=== PATIENT | female | born 1950 | race Caucasian/White ===

== ENCOUNTER 2017-03-18 07:33 | Outpatient (CLI) | payer MEDICARE, OTHER ==
--- NOTE | 2017-03-18 11:21 | CT ---
CT OF ABDOMEN AND PELVIS PERFORMED WITH CONTRAST ENHANCEMENT: HISTORY: Endometrial cancer restaging. COMPARISON: 11/30/16 study. FINDINGS: The lung bases are clear. The liver shows a suggestion of fatty change. It measures 18.7 cm in length. The spleen is 10.5 cm. Pancreas shows no mass or ductal dilatation. The gallbladder region is unremarkable. Right and left adrenal glands and right and left kidneys are normal in size. A small dystrophic calc ification along the posterior aspect of the right lobe of the liver is unchanged. There is no significant periaortic or mesenteric adenopathy. There is some very mild diverticulosis of the descending and sigmoid colon. A tiny fat-containing paraumbilical hernia is seen. CT OF PELVIS PERFORMED WITH CONTRAST ENHANCEMENT: Postop hysterectomy changes are noted. There is no significant pelvic lymphadenopathy. IMPRESSION: 1. Fatty change of the liver which is borderline in size. 2. Postop hysterectomy change. 3. Minimal colonic diverticulosis. POS: [facility]
== END 2017-03-18 07:34 | disposition home or self-care (01) ==
LOC: SCSCT 07:33
PROVIDERS: ATTEND Internal Medicine Hematology & Oncology
DX: C54.1 Malignant neoplasm of endometrium (principal); K76.0 Fatty (change of) liver, not elsewhere classified; Z90.710 Acquired absence of both cervix and uterus
CPT/HCPCS: 74177

== ENCOUNTER 2017-08-05 07:52 | Outpatient (CLI) | payer MEDICARE, OTHER ==
[2017-08-05] MEDS ORDERED: Iopamidol 370 76% 100 ML VIAL ONE (09:00)
--- NOTE | 2017-08-05 12:26 | CT ---
CT OF THE CHEST AND ABDOMEN AND PELVIS WITH IV CONTRAST: Date: 08/05/17 INDICATION: History of endometrial malignancy. Status post hysterectomy. COMPARISON: Prior CT of the chest, abdomen, and pelvis dated 08/16/16. FINDINGS: No suspicious pulmonary nodule is demonstrated. There are some areas of subsegmental volume loss with in the lower lobes and lingula. There is a left chest wall port projecting into the SVC. No pathologically enlarged mediastinal, hilar, or axillary lymphadenopathy is evident. There is fatty infiltration of the liver with areas of focal fatty sparing near the falciform ligamen t. The adrenal glands, pancreas, spleen, and kidneys appear within normal limits. There are mild vascular calcifications involving the abdominal aorta. There is stable postsurgical change of a hysterectomy and bilateral oophorectomy. No pathologically e nlarged lymph nodes are evident. The bladder, rectum, and perirectal soft tissues appear within emily l limits. There is a mild amount of retained stool within the distal transverse colon, descending col on, and sigmoid colon. There is scattered degenerative and osteoarthritic change. No definite acute osseous abnormality is e vident. IMPRESSION: 1. No evidence of recurrent or metastatic disease within the chest, abdomen, or pelvis. 2. Previously described enlarged lymph nodes within the pelvis have reduced in size and likely relat ed to reactive lymphadenopathy. 3. Fatty infiltration of the liver, more pronounced than seen on the comparison of July 2016, but l ikely stable in severity to the comparison dated 03/18/17. POS: [facility]
== END 2017-08-05 07:53 | disposition home or self-care (01) ==
LOC: SCSCT 07:52
PROVIDERS: ATTEND Internal Medicine Hematology & Oncology
DX: C54.1 Malignant neoplasm of endometrium (principal); K76.0 Fatty (change of) liver, not elsewhere classified
CPT/HCPCS: 71260; 74177

== ENCOUNTER 2018-02-06 07:59 | Outpatient (CLI) | payer MEDICARE, OTHER ==
[2018-02-06] MEDS ORDERED: Iopamidol 370 76% 100 ML VIAL ONE (09:00)
--- NOTE | 2018-02-06 12:26 | CT ---
CT CHEST WITH CONTRAST CT ABDOMEN AND PELVIS WITH CONTRAST: Technique: Multiple axial tomograms were obtained through the chest, abdomen, and pelvis with IV enha ncement. Indications: Follow up endometrial cancer. Comparison: 03-18-17, 08-05-17 FINDINGS: CT CHEST: The lung rodriguez are clear. Mediastinum unremarkable. Thyroid unremarkable. No axillary adenopathy. Os seous structures unremarkable. IMPRESSION: Unremarkable chest with no interval change. CT ABDOMEN AND PELVIS: The liver, spleen, and pancreas unremarkable. The liver does show diffuse low attenuation consistent with fatty infiltration which has been descfibed previously. There is a calcified nodule along the po sterior margin of the liver which is stable. Stomach and duodenum unremarkable. Adrenal glands and kidneys unremarkable. Small enlarged bowel loops unremarkable. Aorta normal caliber. Nonspecific periaortic lymph nodes are subcentimeter and are stable. Images through the pelvis show evidence of hysterectomy. Urinary bladder unremarkable. No evidence of pelvic adenopathy. Osseous structures unremarkable. IMPRESSION: Unremarkable CT abdomen and pelvis. No change from prior exams. POS: [facility]
== END 2018-02-06 08:00 | disposition home or self-care (01) ==
LOC: SCSCT 07:59
PROVIDERS: ATTEND Internal Medicine Hematology & Oncology
DX: C54.1 Malignant neoplasm of endometrium (principal)
CPT/HCPCS: 71260; 74177; 82565

== ENCOUNTER 2018-08-11 07:15 | Outpatient (CLI) | payer MEDICARE, OTHER ==
[2018-08-11] MEDS ORDERED: Iopamidol 300 61% 100 ML VIAL FS ONE (09:00)
--- NOTE | 2018-08-11 13:40 | CT ---
Exam: Chest, abdomen, and pelvic CT scan with IV contrast: COMPARISON: 02/06/2018, 08/05/2017 HISTORY: Malignant neoplasm of the endometrium FINDINGS: No mediastinal mass or adenopathy. No pleural effusion. No acute pulmonary parenchymal process. Mild stable linear chronic lung changes. There appear to be some mild fatty changes in the liver. No evidence for liver metastasis. Gallbladde r, pancreas, spleen, adrenal glands are unremarkable. No renal calculus or acute obstruction. There are some postsurgical changes in the right lower quadrant of the abdomen. No evidence for adeno ning, abscess, or abnormal fluid collection within the abdomen or pelvis. There is an approximately 2.2 cm diameter left periumbilical fat-containing hernia with some associated fat stran ding within the the herniated fat and adjacent to it new from prior study, possibly representing some nonspecific fatty infiltration, inflammation, or possibly if the patient has pain associated wit h this could represent some fat incarceration. IMPRESSION: No evidence for metastasis. Left periumbilical fat-containing hernia has some fat stranding within an d adjacent to the hernia, nonspecific.
== END 2018-08-11 07:16 | disposition home or self-care (01) ==
LOC: SCSCT 07:15
PROVIDERS: ATTEND Internal Medicine Hematology & Oncology
DX: C54.1 Malignant neoplasm of endometrium (principal); K42.9 Umbilical hernia without obstruction or gangrene
CPT/HCPCS: 71260; 74177; 82565; Q9967

== ENCOUNTER 2019-02-09 07:46 | Outpatient (CLI) | payer MEDICARE, OTHER ==
--- NOTE | 2019-02-09 11:26 | CT ---
EXAM: CT chest, abdomen, and pelvis with IV contrast: HISTORY: Follow-up evaluation. Malignant neoplasm of the endometrium. History of hysterectomy. COMPARISON: 08/11/2018 FINDINGS: CT THORAX: Lungs: No consolidation, suspicious pulmonary nodule, or mass. Pleura: No pleural effusion. Lymph nodes: No lymphadenopathy. Mediastinum: Left subclavian Mediport catheter remains in place. Mediastinal structures otherwise hav e a normal CT appearance. Chest wall: No abnormalities CT ABDOMEN AND PELVIS: Liver: Again noted is mild fatty infiltration of the liver. Gallbladder: Within normal limits. \ Pancreas: There is mild nonspecific prominence of the pancreatic duct unchanged in the prior study an d similar to study on 08/05/2017. Pancreas otherwise demonstrates a normal CT appearance. Spleen: Within normal limits. Adrenal glands: Within normal limits. Kidneys: Within normal limits. Urinary Bladder: The urinary bladder is unremarkable. Reproductive organs: Evidence of hysterectomy. Bowel: There is mild eccentric thickening of the cecal apex with loops of small bowel abutting the ce vijay apex in this region. This was not appreciated on the prior exam. This could potentially be related to incomplete distention. Loops of small bowel are normal in caliber. Small to moderate amoun t retained fecal material seen in the transverse and descending colon. Adenopathy:No lymphadenopathy within the abdomen or pelvis. Peritoneum: Surgical clips are seen in the central mesentery of the pelvis. No free fluid fluid colle ction is seen in the abdomen or pelvis. Abdominal wall: Fat-containing small ventral abdominal wall hernias are again noted. Osseous structures: No suspicious lytic or sclerotic osseous lesions are identified. IMPRESSION: 1. Nonspecific focal area of eccentric thickening in the region of the cecal apex not appreciated on prior exam. This may potentially be related to incomplete distention. However, follow-up evaluation is advised. Loops of small bowel are also seen in this region which abut this area of apparent mild t hickening. 2. No definite findings to suggest metastatic disease in the chest, abdomen, or pelvis. There is no l ymphadenopathy. 3. Small fat-containing ventral abdominal wall hernias. 4. Fatty infiltration liver. 5. Hysterectomy.
== END 2019-02-09 07:47 | disposition home or self-care (01) ==
LOC: SCSCT 07:46
PROVIDERS: ATTEND Internal Medicine Hematology & Oncology
DX: C54.1 Malignant neoplasm of endometrium (principal); K43.9 Ventral hernia without obstruction or gangrene; Z90.710 Acquired absence of both cervix and uterus
CPT/HCPCS: 71260; 74177; 82565

== ENCOUNTER 2019-10-22 07:58 | Outpatient (CLI) | payer MEDICARE, OTHER ==
--- NOTE | 2019-10-22 16:27 | CT ---
CT CHEST, ABDOMEN, AND PELVIS WITH IV CONTRAST: Date: 10-22-2019 Provided Clinical History: Malignant neoplasm of the endometrium. FINDINGS: Comparison 02-09-19. The heart, pericardium, and great vessels demonstrate an unremarkable CT appearance. There is no evid ence for thoracic lymph node enlargement. The lungs are free of significant opacity. There is no pleu ral fluid, pleural thickening, or pneumothorax apparent. The airway appears patent and of normal lucretia whitney. The liver, spleen, pancreas, kidneys, and adrenal glands demonstrate a normal CT appearance. There is a small amount of free fluid seen about the cranial margin of the right hepatic lobe anterio rly. There is also a small amount of free fluid present within the pelvic cul-de-sac. There is strand ing change seen involving the peritoneal fat adjacent to the ascending colon just above the iliac cre st with a somewhat nodular component to its anterior margin. It is uncertain if this represents perit hester based soft tissue or fluid interspersed within the fat surrounding the lateral paracolic gutter . There is no bowel dilatation, additional peritoneal fat infiltration or lymph node enlargement. The osseous structures demonstrate no concerning lytic or blastic lesions. Lower lumbar spine degener ative changes are seen. IMPRESSION: 1. Development of a small amount of free intraperitoneal fluid as described as well as nonspecific ch anges involving the peritoneal fat about the right paracolic gutter that could reflect fluid interspe rsed within the fat versus developing soft tissue nodule. Follow up is recommended. POS: [facility]
== END 2019-10-22 07:59 | disposition home or self-care (01) ==
LOC: SCSCT 07:58
PROVIDERS: ATTEND Internal Medicine Hematology & Oncology
DX: C54.1 Malignant neoplasm of endometrium (principal); R18.8 Other ascites
CPT/HCPCS: 71260; 74177; 82565

== ENCOUNTER 2020-01-01 08:22 | Outpatient (CLI) | payer MEDICARE, OTHER ==
--- NOTE | 2020-01-01 12:49 | CT ---
CT ABDOMEN AND PELVIS WITH OV CONTRAST: Oral contrast was administered. INDICATION: Malignant neoplasm of endometrium. Follow-up from recent exam. Comparison made to CT scan of chest, abdomen, and pelvis of 10/22/2019. That exam revealed new small fluid collection along the anterior liver margin and some minimal paracolic fat stranding on the righ t. FINDINGS: Lung bases clear. The tiny fluid collection along the anterior margin of the liver seen on the prior study is no longer present. The liver, spleen, and pancreas are unremarkable. Stomach and duodenum are unremarkable. Adrenal glan ds and kidneys are unremarkable. Small bowel loops appear normal. Colon unremarkable. The questioned stranding in the paracolic fat on the right on the prior study is not apparent today. Aorta appears normal caliber. No adenopathy. Images through the pelvis are unremarkable. Urinary bladder unremarkable. Small anterior abdominal wall hernia just lateral to the umbilicus to the left of midline is unchange d. Osseous structures unremarkable. IMPRESSION: Unremarkable CT abdomen and pelvis. The fluid collection along the liver margin noted previously is no longer present. The questioned fat stranding noted previously is no longer present. POS: [facility]
== END 2020-01-01 08:23 | disposition home or self-care (01) ==
LOC: SCSCT 08:22
PROVIDERS: ATTEND Internal Medicine Hematology & Oncology
DX: C54.1 Malignant neoplasm of endometrium (principal)
CPT/HCPCS: 74177; 82565

== ENCOUNTER 2023-10-24 07:54 | Outpatient (CLI) | payer MEDICARE, OTHER | END 2023-10-24 07:55 | disposition home or self-care (01) | LOC: RAD 07:54 | PROVIDERS: ATTEND Nurse Practitioner Family | DX: M54.2 Cervicalgia (principal); M47.812 Spondylosis without myelopathy or radiculopathy, cervical region | CPT/HCPCS: 72040 ==